=== PATIENT | male | born 1960 | race Caucasian/White ===

== ENCOUNTER 2019-09-24 05:34 | Emergency (ER) | payer MEDICARE, OTHER ==
[2019-09-24] MEDS ORDERED: EPINEPHrine 1:10,000 1 MG/10 ML Syringe IOSS ONE (05:35)
[2019-09-24] MEDS ORDERED: EPINEPHrine 1:10,000 1 MG/10 ML Syringe IOSS STA ×2 (05:40→05:48)
[2019-09-24] MEDS: EPINEPHrine 1:10,000 1 MG/10 ML Syringe IVPUSH ONE ×2 (05:45→07:28)
--- NOTE | 2019-09-24 06:29 | PCM.SN ---
- Free Text/Narrative Note: ANESTHESIA SERVICE Date: 09/24/2019 Time: 36 to 0554 Preprocedure Dx: Active CPR Postprocedure: CPR Involvement [48364] and Access to Central Venous Circulation [83567] I was called to the ED for an active CPR arriving. Upon my arrival, active CPR was continuing with the airway established by the ambulance crew. They placed an I-Gel Supraglottic Airway Device with a positive EtCo2 return. However, now there is a large air leak even with manipulation of its position. I notified the ED physician if he wanted me to reintubated this patient but he said no. I continued manual ventilation using an Adult Ambu-Bag with 15 l/m O2. His heart tracing is asystole, no pulses and his pupils are dilated / fixed. I could barely hear breath sounds. This patient had a right lower leg IO Access device with multiple attempts for peripheral venous access by 2 RNs. I asked the ED physician again about the reintubation but he said no but he did ask me to attempt neck central venous access for blood. I did prep an area on the left mid neck with alcohol wipes X 3, I did placed a 20 Ga. X 1.25 In. Jelco ProtectIV Plus X 1 attempt in the left External Jugular vein. I had great blood return and withdrew 12 ml's of blood. He stopped the CPR and asked to have it removed, which I did. There are no pulses, no heart tones, asystole and fixed bilateral pupils. Nitin Burkett CRNA, [place]
--- NOTE | 2019-09-24 18:35 | EDM.PDOC ---
ED HPI GENERAL MEDICAL PROBLEM - General Chief Complaint: CPR in Progress Stated Complaint: CODE 100 Time Seen by Provider: 09/24/19 05:35 Source of Information: Reports: EMS - History of Present Illness INITIAL COMMENTS - FREE TEXT/NARRATIVE: Patient presented to the ED via EMS with CPR in progress. EMS info, patient was found unresponsive at [facility] when someone went to check on him at about 0500. He was already pulseless but [facility] staff called EMS and upon arrival at the scene patient is pulseless but on VFib so he was shocked x2 and was given a dose of epi. From VFib patient converted to asystole and has been on this rhythm for 30 minutes until his arrival in the ED. CPR was continued and 3 more epi was given. He is still pulseless with fixed and dilated pupils. Since the resuscitation has been almost an hour long without any signs of life coming back patient was pronounced at 0550 on 09/24/2019. 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 Past Medical History Neurological History: Reports: Other (See Below) (Myotonic Dystrophy FTT) ED ROS GENERAL - Review of Systems Review Of Systems: See Below Constitutional: Reports: No Symptoms HEENT: Reports: No Symptoms Respiratory: Reports: No Symptoms Cardiovascular: Reports: No Symptoms Endocrine: Reports: No Symptoms GI/Abdominal: Reports: No Symptoms : Reports: No Symptoms Musculoskeletal: Reports: No Symptoms Skin: Reports: No Symptoms Neurological: Reports: Weakness Hematologic/Lymphatic: Reports: No Symptoms Immunologic: Reports: No Symptoms ED EXAM, CPR - Physical Exam Exam: See Below Limited By: Unresponsive Eye Exam: Bilateral Eye: Other (Fixed and dilated pupils) Head: Atraumatic, Normocephalic Neck: Other (No carotid pulse) Respiratory Chest: Other (no spontaneous breathing) Cardiovascular: Other (absent heart beat) GI/Abdominal Exam: Other (no bowel sounds) Neurological: Unresponsive Skin Exam: Cool, Cyanosis Course - Vital Signs Text/Narrative:: see resuscitation notes on HPI - Orders/Labs/Meds Labs: Laboratory Tests 09/24/19 09/24/19 09/24/19 Range/Units 05:55 05:55 05:55 WBC 13.0 H (4.5-12.0) X10-3/uL Corrected WBC 10.0 (4.5-12.0) X10(3) RBC 3.44 L (4.30-5.75) x10(6)uL Hgb 10.7 L (13.5-17.8) g/dL Hct 34.8 (30.0-51.3) % MCV 101.0 H (80-96) fL MCH 31.2 (27.7-33.6) pg MCHC 30.9 L (32.2-35.4) g/dL RDW 16.7 H (11.5-15.5) % Plt Count 148 (125-369) X10(3)uL MPV 9.1 (7.4-10.4) fL Add Manual Diff Yes Neutrophils % (Manual) 23 L (46-82) % Band Neutrophils % 2 (0-6) % Lymphocytes % (Manual) 60 H (13-37) % Monocytes % (Manual) 7 (4-12) % Eosinophils % (Manual) 1 (0-5) % Metamyelocytes % 4 H (0-0) % Myelocytes % 3 H (0-0) % Nucleated RBCs 20 H (0-0) /100WBC Anisocytosis Moderate H Macrocytosis Moderate H PT 16.7 H (8.7-11.1) INR 1.73 H (0.89-1.13) APTT Cancelled Sodium 130 L (135-145) mmol/L Potassium > 9.0 H* (3.5-5.3) mmol/L Chloride 99 L (100-110) mmol/L Carbon Dioxide 17 L (21-32) mmol/L BUN 19 H (7-18) mg/dL Creatinine 0.7 (0.70-1.30) mg/dL Est Cr Clr Drug Dosing TNP Estimated GFR (MDRD) > 60 (>60) BUN/Creatinine Ratio 27.1 H (9-20) Glucose 391 H (80-116) mg/dL Calcium 8.2 L (8.6-10.2) mg/dL Total Bilirubin 0.3 (0.1-1.3) mg/dL AST > 1000 H* (5-25) IU/L ALT > 1000 H* (12-36) U/L Alkaline Phosphatase 141 H (56-112) IU/L Troponin I (<0.017-0.056) ng/mL Total Protein 5.6 L (6.0-8.0) g/dL Albumin 1.6 L* (3.5-5.2) g/dL Globulin 4.0 g/dL Albumin/Globulin Ratio 0.4 09/24/19 Range/Units 05:55 WBC (4.5-12.0) X10-3/uL Corrected WBC (4.5-12.0) X10(3) RBC (4.30-5.75) x10(6)uL Hgb (13.5-17.8) g/dL Hct (30.0-51.3) % MCV (80-96) fL MCH (27.7-33.6) pg MCHC (32.2-35.4) g/dL RDW (11.5-15.5) % Plt Count (125-369) X10(3)uL MPV (7.4-10.4) fL Add Manual Diff Neutrophils % (Manual) (46-82) % Band Neutrophils % (0-6) % Lymphocytes % (Manual) (13-37) % Monocytes % (Manual) (4-12) % Eosinophils % (Manual) (0-5) % Metamyelocytes % (0-0) % Myelocytes % (0-0) % Nucleated RBCs (0-0) /100WBC Anisocytosis Macrocytosis PT (8.7-11.1) INR (0.89-1.13) APTT Sodium (135-145) mmol/L Potassium (3.5-5.3) mmol/L Chloride (100-110) mmol/L Carbon Dioxide (21-32) mmol/L BUN (7-18) mg/dL Creatinine (0.70-1.30) mg/dL Est Cr Clr Drug Dosing Estimated GFR (MDRD) (>60) BUN/Creatinine Ratio (9-20) Glucose (80-116) mg/dL Calcium (8.6-10.2) mg/dL Total Bilirubin (0.1-1.3) mg/dL AST (5-25) IU/L ALT (12-36) U/L Alkaline Phosphatase (56-112) IU/L Troponin I 0.131 H* (<0.017-0.056) ng/mL Total Protein (6.0-8.0) g/dL Albumin (3.5-5.2) g/dL Globulin g/dL Albumin/Globulin Ratio Meds: Medications Discontinued Medications Generic Name Dose Route Start Last Admin Trade Name Katey PRN Reason Stop Dose Admin Epinephrine HCl 1 mg 09/24/19 05:40 09/24/19 07:28 Epinephrine 1:10,000 IVPUSH 09/24/19 05:41 Not Given ASDIRECTED ONE Epinephrine HCl 1 mg 09/24/19 05:40 09/24/19 05:46 Epinephrine 1:10,000 IOSS 09/24/19 05:41 1 mg ONETIME STA Administration Epinephrine HCl 1 mg 09/24/19 05:48 09/24/19 05:48 Epinephrine 1:10,000 IOSS 09/24/19 05:49 1 mg ONETIME STA Administration Epinephrine HCl 1 mg 09/24/19 05:35 09/24/19 05:45 Epinephrine 1:10,000 IOSS 09/24/19 05:36 1 mg ONETIME ONE Administration Departure - Departure Time of Disposition: 05:50 Disposition: 20 Preliminary Cause of *Q: Respiratory Failure Clinical Impression: Respiratory arrest - Discharge Information Referrals: Jaspreet Mascorro MD [Primary Care Provider] - Forms: ED Department Discharge
== END 2019-09-24 05:50 | disposition expired ==
LOC: FB.ED 05:45
DX: I46.9 Cardiac arrest, cause unspecified (principal)
CPT/HCPCS: 36415; 80053; 84484; 85025; 85610; 92950; 99285-25; J0171